=== PATIENT | male | born 1940 | race Caucasian/White ===

== ENCOUNTER 2024-06-22 00:06 | Emergency (ER) | payer MEDICARE ==
[~2024-06-22] VITALS: Ht 167.6 cm; Wt 74.8 kg
[~2024-06-22 00:06] MED LIST: CEFDINIR300 MG PO; IBUPROFEN200 MG PO; PROBIOTIC & AC1 EACH PO
[2024-06-22 00:07] VITALS: PULSE 82; RESP 20; TEMP 98.7
[2024-06-22] MEDS ORDERED: CEFPODOXIME PR200 MG PO (00:44)
[2024-06-22] MEDS: CEFTRIAXONE 1 GM VIAL IM ONE (01:09)
[2024-06-22 02:00] VITALS: BP 137/62; PULSE 61; RESP 16; TEMP 98.7; O2SAT 98
== END 2024-06-22 01:28 | disposition home or self-care (01) ==
LOC: FSED 00:10
DX: Z46.6 Encounter for fitting and adjustment of urinary device (principal); N39.0 Urinary tract infection, site not specified; I10 Essential (primary) hypertension; E78.5 Hyperlipidemia, unspecified; E03.9 Hypothyroidism, unspecified; Z85.46 Personal history of malignant neoplasm of prostate
CPT/HCPCS: 51702; 87086; 87186; 99283; J0696; 51700

== ENCOUNTER 2025-02-02 10:16 | Inpatient (IN) | payer MEDICARE ==
[2025-01-30 14:00] LABS: BASOPHILS # (AUTO) 0.1 (0.0-0.1); BASOPHILS % 0.8 % (0.0-1.0); EOSINOPHILS # (AUTO) 0.2 (0.0-0.4); EOSINOPHILS % 2.5 % (0.0-6.0); HEMATOCRIT 36.8 % (38.2-49.6); LYMPHOCYTES # (AUTO) 1.4 (1.0-3.2); LYMPHOCYTES % 23.8 % (18.0-39.1); MEAN CORPUSCULAR HEMOGLOBIN 30.9 pg (28-32); MEAN CORPUSCULAR HGB CONC 32.6 g/dL (31-35); MEAN CORPUSCULAR VOLUME 94.8 fL (81-99); MONOCYTES # (AUTO) 0.5 (0.2-0.8); MONOCYTES % 7.9 % (4.4-11.3); NEUTROPHILS # (AUTO) 3.9 (2.1-6.9); NEUTROPHILS % 64.7 % (38.7-80.0); PLATELET COUNT 196 x10e3/uL (140-360); RED BLOOD COUNT 3.88 x10e6/uL (4.3-5.7); RED CELL DISTRIBUTION WIDTH 13.5 % (11.7-14.4); WHITE BLOOD COUNT 5.97 x10e3/uL (4.8-10.8)
[2025-01-30 14:19] LABS: ANION GAP 13.2 mmol/L (8-16); CALCIUM 8.8 mg/dL (8.4-10.2); CREATININE, SERUM 0.93 mg/dL (0.72-1.25); POTASSIUM 4.2 mmol/L (3.5-5.1)
[~2025-02-02] VITALS: Ht 165.1 cm; Wt 71.7 kg
[~2025-02-02 10:16] MED LIST changes: +AMLODIPINE BESYL5 MG PO; +BICALUTAMIDE50 MG; +CEFPODOXIME PR200 MG PO; +CEPHALEXIN500 MG PO; +HERBAL LAXATIVE; +LEVOTHYROXINE88 MCG PO; +LOSARTAN POTAS100 MG PO; +NUBEQA300 MG PO; +PSYLLIUM; +SAW PALMETTO450 MG
[2025-02-02] MEDS: SODIUM CHLORIDE 0.9% 1000ML 1,000 ML ONE (11:53)
[2025-02-02] MEDS: CEFTRIAXONE 1 GM VIAL ONE (11:53)
[2025-02-02] MEDS: GENTAMICIN 80MG/NS 100 ML 200 ML IV ONE (11:54)
[2025-02-02] MEDS ORDERED: LIDOCAINE HCL 2% LOCAL INJ 5 ML SDV VIAL INJ ONE (12:28)
[2025-02-02] MEDS ORDERED: ACETAMINOPHEN 1000 MG/100 ML 100 ML IV ONE (12:28)
[2025-02-02] MEDS ORDERED: PROPOFOL IV EMULSION 10 MG/ML 20 ML VIAL ONE ×3 (12:28→15:14)
[2025-02-02] MEDS ORDERED: FENTANYL CITRATE/PF 100MCG/2 ML INJ ONE (12:28)
[2025-02-02] MEDS ORDERED: SEVOFLURANE INHAL SOLN 250 ML PEN BTL ONE ×2 (12:30→15:14)
[2025-02-02] MEDS ORDERED: ONDANSETRON HCL INJ 2MG/ML 2ML 2 MG/ML VIAL ONE (13:37)
[2025-02-02] MEDS ORDERED: EPHEDRINE SULFATE INJ 50 MG/ML VIAL ONE (13:37)
[2025-02-02] MEDS ORDERED: DEXAMETHASONE SOD PHOS INJ 4 MG/ML SDV ONE (13:37)
[2025-02-02] MEDS ORDERED: ACETAMINOPHEN 1000 MG/100 ML IV PRN (15:30)
[2025-02-02] MEDS ORDERED: PHENAZOPYRIDINE HCL 100 MG TAB PO PRN (15:30)
[2025-02-02] MEDS ORDERED: DIPHENHYDRAMINE HCL 25 MG CAP PO PRN (15:30)
[2025-02-02] MEDS ORDERED: ONDANSETRON HCL INJ 2MG/ML 2ML 2 MG/ML VIAL IV PRN (15:30)
[2025-02-02 15:40] LABS: BASOPHILS % 0.6 % (0.0-1.0); EOSINOPHILS # (AUTO) 0.1 (0.0-0.4); EOSINOPHILS % 1.3 % (0.0-6.0); HEMOGLOBIN 11.3 g/dL (14.0-18.0); LYMPHOCYTES # (AUTO) 1.3 (1.0-3.2); LYMPHOCYTES % 18.1 % (18.0-39.1); MEAN CORPUSCULAR HEMOGLOBIN 30.6 pg (28-32); MEAN CORPUSCULAR HGB CONC 33.2 g/dL (31-35); MEAN CORPUSCULAR VOLUME 92.1 fL (81-99); MONOCYTES # (AUTO) 0.3 (0.2-0.8); MONOCYTES % 3.6 % (4.4-11.3); NEUTROPHILS # (AUTO) 5.3 (2.1-6.9); NEUTROPHILS % 75.7 % (38.7-80.0); PLATELET COUNT 170 x10e3/uL (140-360); RED BLOOD COUNT 3.69 x10e6/uL (4.3-5.7); RED CELL DISTRIBUTION WIDTH 13.6 % (11.7-14.4); WHITE BLOOD COUNT 7.03 x10e3/uL (4.8-10.8)
[2025-02-02 15:58] LABS: ANION GAP 13.8 mmol/L (8-16); CALCIUM 7.8 mg/dL (8.4-10.2); CREATININE, SERUM 0.82 mg/dL (0.72-1.25); POTASSIUM 3.8 mmol/L (3.5-5.1)
[2025-02-02 16:05] VITALS: BP 156/64; PULSE 70; RESP 14; TEMP 98.3; O2SAT 99
[2025-02-02 16:06] VITALS: BP 141/72; PULSE 68; RESP 17; TEMP 97.9; O2SAT 99
[2025-02-02] MEDS ORDERED: ASPIRIN CHEW81 MG PO (16:20)
[2025-02-02 16:47] VITALS: PULSE 80; RESP 16; O2SAT 98
[2025-02-02] MEDS ORDERED: SENNA-S TABLET PO SCH (17:00)
[2025-02-02] MEDS: SODIUM CHLORIDE 0.9% 1000ML 1,000 ML IV SCH (17:43)
[2025-02-02 20:00] VITALS: BP 131/59; PULSE 64; RESP 18; TEMP 97.5; O2SAT 100
[2025-02-02 21:00] VITALS: BP 131/59; PULSE 64; RESP 16; RESP 18; TEMP 97.5; O2SAT 100; O2SAT 99
[2025-02-02] MEDS: SENNA-S TABLET PO SCH (22:16)
[2025-02-02 23:00] VITALS: BP 109/56; PULSE 71; RESP 18; TEMP 97.8; O2SAT 98
[2025-02-03] VITALS (9 sets, daily range): BP systolic 112–136; BP diastolic 54–93; PULSE 66–78; RESP 16–20; TEMP 97.6–98.5; O2SAT 96–100
[2025-02-03 05:26] LABS: BASOPHILS % 0.2 % (0.0-1.0); EOSINOPHILS % 0.1 % (0.0-6.0); HEMATOCRIT 25.5 % (38.2-49.6); HEMOGLOBIN 8.4 g/dL (14.0-18.0); LYMPHOCYTES # (AUTO) 0.9 (1.0-3.2); LYMPHOCYTES % 7.7 % (18.0-39.1); MEAN CORPUSCULAR HGB CONC 32.9 g/dL (31-35); MEAN CORPUSCULAR VOLUME 94.1 fL (81-99); MONOCYTES # (AUTO) 0.7 (0.2-0.8); MONOCYTES % 6.5 % (4.4-11.3); NEUTROPHILS # (AUTO) 9.4 (2.1-6.9); NEUTROPHILS % 84.8 % (38.7-80.0); PLATELET COUNT 162 x10e3/uL (140-360); RED BLOOD COUNT 2.71 x10e6/uL (4.3-5.7); RED CELL DISTRIBUTION WIDTH 13.6 % (11.7-14.4); WHITE BLOOD COUNT 11.13 x10e3/uL (4.8-10.8)
[2025-02-03 05:55] LABS: INR 1.11
[2025-02-03 06:06] LABS: ANION GAP 12.7 mmol/L (8-16); CALCIUM 7.7 mg/dL (8.4-10.2); CREATININE, SERUM 0.85 mg/dL (0.72-1.25); POTASSIUM 4.7 mmol/L (3.5-5.1)
[2025-02-03] MEDS: LEVOTHYROXINE SODIUM 88 MCG TAB PO SCH (09:15)
[2025-02-03] MEDS: BICALUTAMIDE 50 MG TABLET PO SCH (09:51)
[2025-02-04] VITALS (8 sets, daily range): BP systolic 137–159; BP diastolic 55–69; PULSE 63–74; RESP 16–20; TEMP 97.1–98.3; O2SAT 95–100
[2025-02-04 05:40] LABS: BASOPHILS % 0.4 % (0.0-1.0); EOSINOPHILS # (AUTO) 0.2 (0.0-0.4); LYMPHOCYTES # (AUTO) 1.6 (1.0-3.2); LYMPHOCYTES % 20.4 % (18.0-39.1); MEAN CORPUSCULAR HEMOGLOBIN 30.8 pg (28-32); MEAN CORPUSCULAR HGB CONC 32.4 g/dL (31-35); MONOCYTES # (AUTO) 0.7 (0.2-0.8); MONOCYTES % 8.6 % (4.4-11.3); NEUTROPHILS # (AUTO) 5.4 (2.1-6.9); NEUTROPHILS % 68.2 % (38.7-80.0); PLATELET COUNT 141 x10e3/uL (140-360); RED BLOOD COUNT 2.21 x10e6/uL (4.3-5.7); RED CELL DISTRIBUTION WIDTH 13.9 % (11.7-14.4); WHITE BLOOD COUNT 7.94 x10e3/uL (4.8-10.8)
[2025-02-04 05:46] LABS: HEMOGLOBIN 6.8 g/dL (14.0-18.0)
[2025-02-04 06:00] LABS: CALCIUM 7.6 mg/dL (8.4-10.2); CREATININE, SERUM 0.78 mg/dL (0.72-1.25)
[2025-02-04] MEDS: ACETAMINOPHEN/CODEINE 300MG - 30MG TAB PO PRN (08:04)
[2025-02-04] MEDS: IRON SUCROSE 100 MG in SODIUM CHLORIDE 0.9% 100 ML IV SCH (09:45)
[2025-02-04] MEDS: ACETAMINOPHEN 325 MG TAB PO SCH (09:46)
[2025-02-04] MEDS: LORATADINE 10 MG TAB PO SCH (09:46)
[2025-02-04] MEDS: AMLODIPINE BESYLATE 5 MG TAB PO SCH (09:47)
[2025-02-04] MEDS: LOSARTAN POTASSIUM 100 MG TAB PO SCH (09:47)
[2025-02-04] MEDS ORDERED: ONDANSETRON HCL 4 MG ORAL DISINTEGRATING TAB PO PRN (11:00)
[2025-02-05] VITALS (9 sets, daily range): BP systolic 145–155; BP diastolic 49–65; PULSE 60–75; RESP 16–20; TEMP 97.5–98.6; O2SAT 96–100
[2025-02-05 05:02] LABS: BASOPHILS % 0.5 % (0.0-1.0); EOSINOPHILS # (AUTO) 0.2 (0.0-0.4); EOSINOPHILS % 2.7 % (0.0-6.0); LYMPHOCYTES # (AUTO) 1.7 (1.0-3.2); LYMPHOCYTES % 25.9 % (18.0-39.1); MEAN CORPUSCULAR HGB CONC 33.3 g/dL (31-35); MEAN CORPUSCULAR VOLUME 92.9 fL (81-99); MONOCYTES # (AUTO) 0.7 (0.2-0.8); MONOCYTES % 10.8 % (4.4-11.3); NEUTROPHILS # (AUTO) 3.9 (2.1-6.9); NEUTROPHILS % 59.5 % (38.7-80.0); PLATELET COUNT 160 x10e3/uL (140-360); RED BLOOD COUNT 2.26 x10e6/uL (4.3-5.7); RED CELL DISTRIBUTION WIDTH 13.8 % (11.7-14.4); WHITE BLOOD COUNT 6.57 x10e3/uL (4.8-10.8)
[2025-02-05 05:56] LABS: ANION GAP 12.8 mmol/L (8-16); CREATININE, SERUM 0.85 mg/dL (0.72-1.25); POTASSIUM 3.8 mmol/L (3.5-5.1)
[2025-02-05] MEDS ORDERED: POLYETHYLENE GLYCOL 3350 17 GM PACK PO PRN (14:00)
[2025-02-06] VITALS (10 sets, daily range): BP systolic 126–149; BP diastolic 49–64; PULSE 60–68; RESP 18; TEMP 98–98.9; O2SAT 95–99
[2025-02-06 05:13] LABS: BASOPHILS % 0.6 % (0.0-1.0); EOSINOPHILS # (AUTO) 0.2 (0.0-0.4); HEMATOCRIT 22.1 % (38.2-49.6); LYMPHOCYTES % 13.9 % (18.0-39.1); MEAN CORPUSCULAR HEMOGLOBIN 31.1 pg (28-32); MEAN CORPUSCULAR HGB CONC 33.9 g/dL (31-35); MEAN CORPUSCULAR VOLUME 91.7 fL (81-99); MONOCYTES # (AUTO) 0.7 (0.2-0.8); MONOCYTES % 10.3 % (4.4-11.3); NEUTROPHILS % 71.3 % (38.7-80.0); PLATELET COUNT 172 x10e3/uL (140-360); RED BLOOD COUNT 2.41 x10e6/uL (4.3-5.7); RED CELL DISTRIBUTION WIDTH 13.5 % (11.7-14.4); WHITE BLOOD COUNT 6.96 x10e3/uL (4.8-10.8)
[2025-02-06 05:21] LABS: HEMOGLOBIN 7.5 g/dL (14.0-18.0)
[2025-02-06 05:42] LABS: ANION GAP 11.7 mmol/L (8-16); CALCIUM 8.1 mg/dL (8.4-10.2); CREATININE, SERUM 0.85 mg/dL (0.72-1.25); POTASSIUM 3.7 mmol/L (3.5-5.1)
[2025-02-07 00:10] VITALS: BP 133/60; PULSE 67; RESP 17; TEMP 97.8; O2SAT 100
[2025-02-07 04:17] VITALS: BP 127/50; PULSE 62; RESP 17; TEMP 98; O2SAT 100
[2025-02-07 06:05] VITALS: PULSE 70; RESP 21; O2SAT 96
[2025-02-07 07:48] VITALS: BP 140/65; PULSE 66; RESP 16; TEMP 98.3; O2SAT 97
[2025-02-07 11:56] VITALS: BP 119/53; PULSE 68; RESP 16; TEMP 98.5; O2SAT 100
[2025-02-07 16:30] VITALS: BP 120/57; PULSE 65; RESP 18; TEMP 98.6
== END 2025-02-07 18:05 | disposition home or self-care (01) | DRG 713 ==
LOC: OR 10:16 → PACU V 15:19 → MED/SURG 15:50
PROVIDERS: ADMIT Internal Medicine; ATTEND Internal Medicine
PROC: BT141ZZ Fluoroscopy of Kidneys, Ureters and Bladder using Low Osmolar Contrast (ICD-10-PCS; 2025-02-02)
PROC: 0T9B70Z Drainage of Bladder with Drainage Device, Via Natural or Artificial Opening (ICD-10-PCS; 2025-02-02)
PROC: 0VB08ZZ Excision of Prostate, Via Natural or Artificial Opening Endoscopic (ICD-10-PCS; principal; 2025-02-02 13:09)
PROC: 0T778DZ Dilation of Left Ureter with Intraluminal Device, Via Natural or Artificial Opening Endoscopic (ICD-10-PCS; 2025-02-02 13:09)
DX: C61 Malignant neoplasm of prostate (principal); D62 Acute posthemorrhagic anemia; N13.6 Pyonephrosis; N13.8 Other obstructive and reflux uropathy; N40.1 Benign prostatic hyperplasia with lower urinary tract symptoms; I10 Essential (primary) hypertension; R31.0 Gross hematuria; Z79.890 Hormone replacement therapy; Z87.440 Personal history of urinary (tract) infections
CPT/HCPCS: 36415; 71046; 74176; 74420; 74470; 80048; 83735; 85014; 85025; 85610; 88305; 88342; 93005; 94799; C1758; C2617; J0696; J1100; J1580; J1756; J2003; J2405; J7030; J7050

== ENCOUNTER 2025-06-09 20:59 | Emergency (ER) | payer MEDICARE ==
[~2025-06-09] VITALS: Ht 167.6 cm; Wt 70.8 kg
[~2025-06-09 20:59] MED LIST changes: +ASPIRIN CHEW81 MG PO
[2025-06-09 21:28] VITALS: PULSE 73; RESP 18; TEMP 98.9
[2025-06-09 21:47] LABS: BASOPHILS % 0.3 % (0.0-1.0); EOSINOPHILS % 0.7 % (0.0-6.0); LYMPHOCYTES % 10.9 % (18.0-39.1); MONOCYTES % 10.7 % (4.4-11.3); NEUTROPHILS % 77.1 % (38.7-80.0); RED CELL DISTRIBUTION WIDTH 16.0 % (11.7-14.4)
[2025-06-09 21:52] LABS: LEUKOCYTE ESTERASE ,URINE 2+ (NEGATIVE)
[2025-06-09 21:53] LABS: PROTEIN,URINE DIPSTICK 2+ (NEGATIVE); URINE UROBILINOGEN 0.2 mg/dL (0.2 - 1)
[2025-06-09 22:02] LABS: EPITHELIAL CELLS,URINE FEW /LPF; WBC,URINE (MAN) >50 /HPF (0-5)
[2025-06-09 22:07] LABS: EST GLOMERULAR FILTRATION RATE 43.0 ML/MIN (>=60)
[2025-06-09] MEDS: SODIUM CHLORIDE 0.9% 1000ML 1,000 ML IV SCH (22:57)
[2025-06-09] MEDS ORDERED: CEFDINIR300 MG PO (23:06)
[2025-06-10 00:08] VITALS: BP 146/67; PULSE 71; RESP 16; O2SAT 97
== END 2025-06-10 00:47 | disposition home or self-care (01) ==
LOC: ER 21:06
DX: R53.1 Weakness (principal); N39.0 Urinary tract infection, site not specified; N17.9 Acute kidney failure, unspecified; I10 Essential (primary) hypertension; E03.9 Hypothyroidism, unspecified; E78.5 Hyperlipidemia, unspecified; G20.A1 Parkinson's disease without dyskinesia, without mention of fluctuations; Z85.46 Personal history of malignant neoplasm of prostate
CPT/HCPCS: 36415; 51702; 80053; 81001; 84484; 85025; 87086; 87186; 99284; J0696; J7030; 51700

== ENCOUNTER → 2025-06-27 | Day surgery (SDC) | payer MEDICARE ==
[2025-06-25 15:23] LABS: BASOPHILS % 0.4 % (0.0-1.0); EOSINOPHILS % 1.8 % (0.0-6.0); LYMPHOCYTES % 18.1 % (18.0-39.1); MONOCYTES % 10.8 % (4.4-11.3); NEUTROPHILS % 68.4 % (38.7-80.0); RED CELL DISTRIBUTION WIDTH 15.2 % (11.7-14.4)
[2025-06-25 15:52] LABS: EST GLOMERULAR FILTRATION RATE 42.0 ML/MIN (>=60)
[~2025-06-27] MED LIST changes: +FLOMAX0.4 MG PO; +LIDOCAINE HCL 2% LOCAL INJ 5 ML SDV VIAL INJ ONE; +NUBEQA300 MG; +PHENAZOPYRIDINE HCL 100 MG TAB ONE; +PROPOFOL IV EMULSION 10 MG/ML 20 ML VIAL ONE; +SODIUM CHLORIDE 0.9% 0 ML ONE
[2025-06-27] MEDS: SODIUM CHLORIDE 0.9% 1000ML 1,000 ML ONE (08:11)
[2025-06-27] MEDS: GENTAMICIN 80MG/NS 100 ML 200 ML IV ONE (08:11)
[2025-06-27] MEDS: ACETAMINOPHEN 1000 MG/100 ML 100 ML IV ONE (10:43)
[2025-06-27] MEDS: PHENAZOPYRIDINE HCL 100 MG TAB ONE (11:07)
[2025-06-27 11:45] VITALS: BP 129/53; PULSE 73; RESP 18; O2SAT 99
== END | disposition home or self-care (01) ==
LOC: OR 07:14
PROVIDERS: ATTEND Urology
DX: R33.8 Other retention of urine (principal); C61 Malignant neoplasm of prostate; N40.1 Benign prostatic hyperplasia with lower urinary tract symptoms; R39.12 Poor urinary stream; N13.30 Unspecified hydronephrosis; N13.5 Crossing vessel and stricture of ureter without hydronephrosis; N32.89 Other specified disorders of bladder; I12.9 Hypertensive chronic kidney disease with stage 1 through stage 4 chronic kidney disease, or unspecified chronic kidney disease; N18.9 Chronic kidney disease, unspecified; G20.A1 Parkinson's disease without dyskinesia, without mention of fluctuations; Z01.812 Encounter for preprocedural laboratory examination; Z01.818 Encounter for other preprocedural examination; Z46.6 Encounter for fitting and adjustment of urinary device; Z79.899 Other long term (current) drug therapy
CPT/HCPCS: 36415; 51040; 52332; 52341; 71046; 74420; 80053; 85025; 87086; 87186; C1758; C2617; J0131; J1580; J2003; J2704; J7030; J7050